=== PATIENT | female | born 1960 | race American Indian/Alaskan Native ===

== ENCOUNTER 2020-02-03 16:50 | Outpatient (CLI) | payer OTHER ==
--- NOTE | 2020-02-03 18:37 | XRay Report ---
CERVICAL SPINE, 8 VIEWS INDICATION / CLINICAL INFORMATION: Lt pain. COMPARISON: None available. FINDINGS: There is mild degenerative disc disease at C3-C4. There is trace posterior subluxation of C3 on C4. T his is stable with flexion and extension positioning. The alignment is otherwise normal. Mild diffuse spondylytic changes are noted throughout the spine. Mild spondylitic changes are noted throughout the spine. Vertebral body heights are normal. Not see fracture. Visualized lung apices are clear. IMPRESSION: 1. Trace posterior subluxation, C3-C4. This is stable with both flexion and extension positioning. 2. Mild diffuse spondylytic change. LUMBAR SPINE, DIFFUSE INDICATION / CLINICAL INFORMATION: Left leg pain. COMPARISON: None available. FINDINGS: Vertebral body heights are within normal limits. Disc spaces are fairly well-preserved. There is prom inent facet degenerative change of the mid and lower lumbar spine. Prominent degenerative changes als o noted in the inferior thoracic spine. No fracture identified. Flexion and extension views do not de monstrate any instability of the lumbar spine. IMPRESSION: 1. No fracture or malalignment. 2. Prominent facet degenerative change of the mid and lower lumbar spine. Signer Name: Katlyn Brumfield MD Signed: 02/03/2020 6:32 PM Workstation Name: [id number]
== END 2020-02-03 16:51 | disposition home or self-care (01) ==
LOC: XRAY 16:50
PROVIDERS: ATTEND Pain Medicine Interventional Pain Medicine
DX: M50.31 Other cervical disc degeneration, high cervical region (principal); M47.816 Spondylosis without myelopathy or radiculopathy, lumbar region; M47.812 Spondylosis without myelopathy or radiculopathy, cervical region
CPT/HCPCS: 72052; 72114; 82962